=== PATIENT | male | born 1935 | race African-American/Black ===

== ENCOUNTER 2017-04-26 08:50 | Emergency (ER) | payer MEDICARE | END 2017-04-26 08:52 | disposition left against medical advice (07) | LOC: ERS 08:50 | DX: Z53.21 Procedure and treatment not carried out due to patient leaving prior to being seen by health care provider (principal) ==

== ENCOUNTER 2017-04-26 09:13 | Observation (INO) | payer MEDICARE ==
[2017-04-26 09:59] LABS: Anisocytosis SLIGHT = 6-15 cells (100X) (0-5/hpf); Band 2 % (5-11); Hematocrit 44.3 % (42.0-52.0); Mean Platelet Volume 8.2 fL (7.4-10.4); Neutrophil 80 % (42-75); Red Blood Cell (RBC) Count 5.17 mill/uL (4.70-6.10); Toxic Granulation SLIGHT; White Blood Cell (WBC) Count 6.3 thou/uL (4.8-10.8)
[2017-04-26 10:00] LABS: Lactic Acid - Sepsis 3.4 mmol/L (0.5-2.2)
[2017-04-26 10:03] LABS: ALT (SGPT) 40 U/L (8-55); Alkaline Phosphatase 94 U/L (40-150); Anion Gap 22 mmol/L (10-20); BUN (Urea Nitrogen) 23 mg/dL (8.4-25.7); Bilirubin, Total 0.5 mg/dL (0.2-1.2); Calc. Creatinine Clearance 0 mL/min (70-130); Calcium 10.8 mg/dL (7.8-10.44); Carbon Dioxide 23 mmol/L (23-31); Chloride 101 mmol/L (98-107); Estimated GFR-MDRD Greater than 90; Globulin 3.6 g/dL (2.4-3.5); Lipase 43 U/L (8-78); Protein, Total 7.9 g/dL (5.8-8.1)
[2017-04-26] MEDS ORDERED: Ondansetron HCl/PF 4 MG/2 ML Vial ONE (10:04)
[2017-04-26 10:30] LABS: AST (SGOT) 35 U/L (5-34)
[2017-04-26 10:46] LABS: Bilirubin Negative (Negative); Blood, Urine Large (Negative); Glucose, Urine (Dipstick) 100 mg/dL (Negative); Ketone, Urine Negative (Negative); Nitrite Negative (Negative)
[2017-04-26 10:47] LABS: Protein, Urine (Dipstick) 100 mg/dL (Neg-Trace)
[2017-04-26 10:50] LABS: Bacteria/HPF None Seen HPF (None Seen); RBC/HPF GREATER THAN 50-TNTC HPF (0-3); Squamous Epithelial None Seen HPF (0-3); WBC/HPF 0-3 HPF (0-3)
[2017-04-26] MEDS ORDERED: Sodium Chloride 0.9% 100 ML ONE (12:49)
[2017-04-26] MEDS ORDERED: cefTRIAXone\\ROCEPHIN 1 GM VIAL ONE (12:50)
--- NOTE | 2017-04-26 13:09 | CT ---
CT ABDOMEN WITH CONTRAST CT PELVIS WITH CONTRAST: DATE: 04/26/17. HISTORY: An 81-year-old male with diffuse abdominal pain, especially on the left side, constipation, and decre ased urination. COMPARISON: None. TECHNIQUE: IV injection of iodinated contrast media: administered. Oral contrast media: not administered. FINDINGS: There is a Pinon catheter within the collapsed urinary bladder. The urinary bladder almonte are diffus chaitanya abnormally thickened to 9 or 10 mm, and has diffusely mildly increased enhancement. The prostate gland is enlarged, and has diffusely mildly heterogeneous enhancement, with an edematous appearance. There is a large volume of stool expanding the rectum. There is a moderate to large volume of stoo l throughout the rest of the colon. No signs of acute colonic diverticulitis. There is a small amou nt of free fluid adjacent to the junction between the descending colon and sigmoid colon (axial image 68 of 103, series 4; coronal image 49 of 123, series 602). There is a large number of bilateral fatou al cysts, varying in size from a few millimeters for the smallest ones, up to 3 cm for the larger one s. Some of the lesions have higher density than serous fluid. For example, a right renal posteromed ial interpolar lesion that measures approximately 3 cm in size has a density of 50 HU. These are pre sumed to represent hemorrhagic renal cysts. With so many renal cysts, the sensitivity for the detect ion of a small renal cell carcinoma is decreased. There is no hydronephrosis. No abdominal aortic a neurysm. No focal hepatic solid or cystic mass lesion. No splenomegaly. No signs of acute pancreat itis or pancreatic mass. No adrenal mass. No small bowel dilation. No pneumoperitoneum. No pleura l effusion. There is edema in the subcutaneous fat around the gluteus musculature and in the buttock s bilaterally. IMPRESSION: 1. Mural thickening and enhancement of the urinary bladder consistent with cystitis. 2. Edematous appearance of the prostate gland, raising the possibility of prostatitis, in addition t o diffuse prostate enlargement. 3. A large number of bilateral renal cysts. 4. Small amount of free fluid adjacent to the junction between the descending colon and sigmoid colo n. Etiology is uncertain. 5. Findings questionable for fecal impaction at the rectum. CHANDLER Arteaga POS: [facility]
[2017-04-26] MEDS ORDERED: Iopamidol 370 76% 100 ML VIAL ONE (13:43)
[2017-04-26] MEDS ORDERED: Sodium Chloride 0.9% 1,000 ML IV SCH (15:20)
[2017-04-26 16:07] VITALS: BMI 21.0
[2017-04-26] MEDS ORDERED: Dextrose 5% in Water 1,000 ML IV PRN (17:41)
[2017-04-26] MEDS ORDERED: HumaLOG 300 UNITS/3 ML VIAL SC PRN (17:41)
[2017-04-26] MEDS ORDERED: Dextrose 50% Abboject 50 ML SYRINGE SLOW IVP PRN (17:41)
[2017-04-26] MEDS: Heparin 5,000 UNITS/ML VIAL SC SCH (20:29)
--- NOTE | 2017-04-27 00:11 | HP ---
DATE OF ADMISSION: 04/26/2017 CHIEF COMPLAINT: Abdominal pain and inability to urinate. HISTORY OF PRESENT ILLNESS: The patient is an 81-year-old -[place]ian male, who is admitted to the hospital with a 1-day history of urinary retention and abdominal pain. He had some abdominal amaya n and discomfort a couple of days ago, but it got better, but today especially last night he was not able to urinate and he was brought to the emergency room for further evaluation. He is constipated. He denies any fever or chills, no nausea, no vomiting. He has a history of benign prostatic hypertr ophy and no history of abdominal surgeries. PAST MEDICAL HISTORY: 1. Diabetes mellitus type 2. 2. History of prostatitis. 3. Hypertension. 4. Dementia. PAST SURGICAL HISTORY: None. SURROGATE DECISION MAKER: Celia Rodrigues, his both sons. PRIMARY CARE PHYSICIAN: Dr. Walden. FAMILY HISTORY: Father at the age of 94 of old age. Mother was in her 60s of unknown cause of . SOCIAL HISTORY: He denies any alcohol intake. He used to smoke a very long time ago. He denies any illicit drug use. Family members, his sister and his in the room and they answered all questio ns about him and his history since the patient seems to be somewhat demented. MEDICATIONS: Flomax 0.4 mg once a day, nifedipine-ER 60 mg once a day, chlorthalidone 25 mg once a d ay, donepezil 5 mg once a day and simvastatin 40 mg at bedtime. ALLERGIES: None. REVIEW OF SYSTEMS: All 14 systems were reviewed and positive symptoms were mentioned in the HPI, oth erwise negative plus some dementia and mental dysfunction. PHYSICAL EXAMINATION: VITAL SIGNS: His blood pressure is 158/73, pulse is 53, temperature is 98.1 and pulse oximetry is 96 % on room air. GENERAL: He is not in any distress during my visit. He has a Pinon catheter placed in his bladder, which was done in the emergency room in [place] where he presented. HEENT: Head is atraumatic, normocephalic. Eyes are PERRLA. Conjunctivae pinkish. Oral mucosa is moist. NECK: Supple, no lymphadenopathy. Thyroid is not palpable. LUNGS: Clear. HEART: S1, S2 normal. No S3, no S4, no murmur. ABDOMEN: Soft, nontender, bowel sounds are present, no organomegaly. EXTREMITIES: No clubbing, cyanosis or edema. NEUROLOGIC: He is alert and oriented x2. There is no any sensory or motor deficits present. Crani al nerves are intact. LABORATORY AND X-RAY FINDINGS: Showed a white count of 6.3, hemoglobin 13.9, hematocrit 44.3, platel et count is 223,000, neutrophils 80%. Chemistries showed sodium of 142, potassium 4.0, chloride 101, CO2 of 23, BUN 23, creatinine 0.84, glucose 267. Lactic acid is 3.4, first testing at 3.1, seconds testing 3 hours later, calcium 10.8, AST 35, globulin 3.6 and the rest of chemistry within normal chavez its. Urine showed 100 of protein, glucose 100, large amount of blood and rbc's are greater than 50 t o too numerous to count. CT of the abdomen and pelvis showed: 1. Mural thickening and enhancement of the urinary bladder consistent with cystitis. 2. Edematous appearance of the prostate gland facing the possibility of prostatitis in addition to d iffuse prostate enlargement. 3. A large number of bilateral renal cysts. 4. Small amount of free fluid adjacent to the junction between the descending colon and sigmoid colo n of uncertain etiology. 5. Findings questionable for fecal impaction at the rectum. IMPRESSION: 1. Urinary outlet obstruction caused by enlarged prostate. Most likely, the patient has benign pros tatic hyperplasia with prostatitis, which caused this acute closure of urethra and difficulty to urin ate. 2. Hypercalcemia, which is mild. We will give IV fluids and would see whether this is enough to imp rove calcium level and normal range. 3. Elevated lactic acid. It is mild elevation at 3.4 and down to 3.1 with IV fluids. 4. Diabetes mellitus type 2. 5. Hypertension per history. 6. History of prostatitis. 7. Dementia. PLAN: Admission to observation. Condition is fair. Activity: Bed rest and bathroom privileges. I V: Normal saline at 75 mL per hour. Patient received 500 mL bolus of IV fluids. In the emergency r oom, he received ceftriaxone injection 1 gram and morphine 2 mg IV push along with Zofran and additi onal 500 mL of normal saline, so in total he received 1000 mL of IV fluids. We will start him on lev ofloxacin and fluoroquinolones would be a better option than Rocephin to cover a wider spectrum. Uri ne culture to be done and blood cultures and Urology consultation with Dr. Aguilar tomorrow. Since t his is not in the emergency and patient should be going home in the next may be 24 hours and on oral antibiotic and with Pinon catheter to follow up with urologist in the next early 2-3 weeks and the [facility] medications will be continued.
[2017-04-27 05:34] LABS: #Eosinphils 0.3 thou/uL (0.0-0.7); #Lymphocytes 1.2 thou/uL (1.20-3.40); #Monocytes 0.5 thou/uL (0.11-0.59); #Neutrophils 2.6 thou/uL (1.40-6.50); %Basophils 0.8 % (0.0-1.0); %Eosinophils 6.6 % (0.0-10.0); %Lymphocytes 25.6 % (21.0-51.0); %Monocytes 10.2 % (0.0-10.0); Hematocrit 36.1 % (42.0-52.0); Mean Platelet Volume 8.6 fL (7.4-10.4); Red Blood Cell (RBC) Count 4.05 mill/uL (4.70-6.10); White Blood Cell (WBC) Count 4.6 thou/uL (4.8-10.8)
[2017-04-27 05:50] LABS: Anion Gap 10 mmol/L (10-20); BUN (Urea Nitrogen) 14 mg/dL (8.4-25.7); Calc. Creatinine Clearance 86 mL/min (70-130); Calcium 9.1 mg/dL (7.8-10.44); Carbon Dioxide 25 mmol/L (23-31); Chloride 106 mmol/L (98-107); Estimated GFR-MDRD Greater than 90
[2017-04-27] MEDS ORDERED: Tamsulosin HCl 0.4 MG CAP PO SCH (09:00)
[2017-04-27] MEDS ORDERED: cefTRIAXone\\ROCEPHIN 1 GM in Sodium Chloride 0.9% 100 ML IVPB SCH (09:45)
[2017-04-27] MEDS: Multivitamin W/ Minerals 1 TAB PO SCH (09:54)
[2017-04-27] MEDS: Donepezil HCl 5 MG TAB PO SCH (09:54)
[2017-04-27] MEDS: Tamsulosin HCl 0.4 MG CAP PO SCH ×2 (09:55→22:32)
[2017-04-27] MEDS: Heparin 5,000 UNITS/ML VIAL SC SCH ×3 (09:57→22:33)
[2017-04-27] MEDS: Chlorthalidone 25 MG TAB PO SCH (09:57)
[2017-04-27] MEDS: NIFEdipine XL 60 MG TAB PO SCH (10:00)
[2017-04-27] MEDS: cefTRIAXone\\ROCEPHIN 1 GM, Syringe 0.4 ML in Sterile Water 9.6 ML SLOW IVP SCH (11:58)
[2017-04-27] MEDS ORDERED: Bisacodyl 10 MG SUPP PR PRN (13:17)
[2017-04-27] MEDS ORDERED: Fleet Enema 133 ML BOT PR PRN (13:17)
[2017-04-27] MEDS ORDERED: Finasteride 5 MG TAB PO SCH (13:30)
--- NOTE | 2017-04-27 15:29 | PDOC.PN ---
- Subjective Encounter Start Date: 04/27/17 Encounter Start Time: 15:10 Subjective: f/u for urinary retention, abd pain and Luke cath placement. Feels much -: better overall except no BM. No fever, N/V. - Objective Resuscitation Status: Resuscitation Status FULL:Full Resuscitation MAR Reviewed: Yes Vital Signs & Weight: Vital Signs (12 hours) Temp Pulse Resp BP BP Pulse Ox 04/27/17 10:00 71 156/73 H 04/27/17 08:00 97.8 F 71 18 04/27/17 07:49 97.8 F 49 L 18 146/80 H 94 L 04/27/17 06:00 97.7 F 50 L 16 154/71 H 94 L Result Diagrams: 04/27/17 05:01 04/27/17 05:01 Additional Labs: Accuchecks 04/27/17 04/27/17 04/26/17 11:57 05:01 19:26 POC Glucose 130 H 85 174 H Microbiology 04/26/17 12:30 Venous blood - Left Arm Blood Culture - Preliminary Specimen has been received and culture in progress. No Growth to date. 04/26/17 11:35 Venous blood - Right Arm Blood Culture - Preliminary Specimen has been received and culture in progress. No Growth to date. 04/26/17 10:20 Urine luke catheter Urine Culture - Preliminary NO GROWTH AT 24 HOURS Laboratory Tests 04/26/17 04/26/17 04/26/17 09:35 09:35 09:35 Hgb 13.9 L Potassium 4.0 Lactic Acid 3.4 H 04/26/17 12:30 Hgb Potassium Lactic Acid 3.1 H Radiology Reviewed by me: Yes (CT abd/pel - urinary wall thickening, fecal impaction?) Phys Exam - Physical Examination Constitutional: NAD HEENT: PERRLA, oral pharynx no lesions Neck: no JVD, supple Respiratory: no wheezing, clear to auscultation bilateral Cardiovascular: RRR Gastrointestinal: soft, non-tender, no distention, positive bowel sounds minimal LE edema Musculoskeletal: pulses present Neurological: moves all 4 limbs Skin: normal turgor, cap refill <2 seconds Deviation from normal: Luke cath in place with armin urine Dx/Plan (1) Urinary retention Code(s): R33.9 - RETENTION OF URINE, UNSPECIFIED Status: Acute Comment: s/p Luke catheter insertion with resolution, continue Luke catheter as outpt, Flomax, Finasteride (2) Abdominal pain Code(s): R10.9 - UNSPECIFIED ABDOMINAL PAIN Status: Acute Qualifiers: Abdominal location: left lower quadrant Qualified Code(s): R10.32 - Left lower quadrant pain Comment: Resolved, secondary to #1 (3) Fecal impaction Code(s): K56.41 - FECAL IMPACTION Status: Acute Comment: Magnesium Citrate (4) DM II (diabetes mellitus, type II), controlled Code(s): E11.9 - TYPE 2 DIABETES MELLITUS WITHOUT COMPLICATIONS Status: Chronic Comment: Resume Lantus 30u sc HS (5) Benign prostatic hyperplasia Code(s): N40.0 - BENIGN PROSTATIC HYPERPLASIA WITHOUT LOWER URINRY TRACT SYMP Status: Chronic Qualifiers: Lower urinary tract symptom detail: urinary obstruction Comment: Continue Flomax and Finasteride - Plan plan discussed w/ family, continue antibiotics, PT/OT, DVT proph w/SCDs Stable overall -: Magnesium Citrate 300ml today -: Continue Luke catheter -: Continue Rocephin another 24h -: Appreciate Urology assistance * Likely home in am
[2017-04-27] MEDS ORDERED: Magnesium Citrate 300 ML BOT PO SCH (15:30)
--- NOTE | 2017-04-27 17:05 | CON ---
DATE OF CONSULTATION: 04/27/2017 REASON FOR CONSULTATION: A consultation was requested for urinary retention. HISTORY OF PRESENT ILLNESS: The patient is an 81-year-old male, who has had 3 prior episodes of retention requiring a catheter and is already on tamsulosin as an outpatient. He was admitted the day prior for retention, abdominal pain, and distention, and a catheter was placed for what I can best tell was about a liter. Normally, he has frequency q.34 hours, nocturia x3 to 4. He has occasional leakage, for which he wears a Depends just in case when he is at [facility] or other out ends, but normally does not have significant leakage of either the bladder or the bowels. He had fullness for a few days prior with some loose movements from a bowel standpoint, but he has not had a bowel movement since this hospital stay. PAST MEDICAL HISTORY: Significant for diabetes he has for 20 years, but it is diet controlled at this time; hypertension; dementia; and hypercholesterolemia. PAST SURGICAL HISTORY: Includes an inguinal hernia. MEDICATIONS: Include Flomax, nifedipine, chlorthalidone, donepezil, simvastatin , and MiraLax. ALLERGIES: None. REVIEW OF SYSTEMS: He really has never had a colonoscopy, but not sure about prostate cancer screening and I reviewed how he has never had any screening. It would be worth getting a PSA to ensure it is not significantly elevated; however, I suspect based on his retention and CT findings it will be significantly elevated, but I would like to rule out that it is not over 50 or 100 at this time. Decreased hearing trouble, but no chest pain, shortness of breath, or cough. SOCIAL HISTORY: He used a half-pack a day or less for the last 7 or 8 years, but quit more than 30 years ago. He does not drink or use drugs. FAMILY HISTORY: Father at 94 of some cancer that he is not sure. Mother at 75 of a heart attack. She did not have cancer. Son of colon cancer in his 50s, and again, the patient has never had a colonoscopy. PHYSICAL EXAMINATION: GENERAL: He appears comfortable in bed, most of the questions are answered by his and another family member. He has been afebrile with T-max 98.3, blood pressure 146/80, heart rate 49, respiratory rate 18, satting 94% on room air. NECK: He has no obvious JVD nor diaphoresis. HEART: Regular rhythm with borderline bradycardia noted. No murmurs, gallops, or rubs. LUNGS: Clear to auscultation bilaterally. ABDOMEN: Softly distended with normoactive bowel sounds. Nontender. GENITOURINARY: Testes were descended bilaterally without masses and atrophic. Phallus was circumcised without lesions and a 14-Portuguese Pinon was in place and secured too low, so I re-secured this to its proper position and discussed this with the nurse. Digital rectal exam reveals significant firm stool noted as well as an enlarged and firm prostate, but no obvious nodules or sidewall fixation. After manipulating the catheter to ensure that it was not stuck in the prostate, there was some hematuria noted at the meatus around the catheter, likely from the prostatic manipulation of the catheter. EXTREMITIES: Lower extremities without swelling. LABORATORY AND X-RAY FINDINGS: CBC revealed mild anemia at 11.7 and 36.1 and platelets of 141. BUN and creatinine were 14 and 0.57. Urinalysis revealed 0- 3 wbcs, too numerous to count rbcs, no bacteria, no skin cells, but glucose and protein present. He also had a CT scan from 04/26/2017, which reviewed personally, with contrast revealing multiple bilateral symphysis as well as prostatic inflammation with a decompressed bladder with a Pinon in it; it was difficult to evaluate the bladder itself. There were no obvious masses. There was no hydronephrosis, stones, or renal concerns and the rectum was huge and full of stool. ASSESSMENT AND PLAN: We have an 81-year-old male with benign prostatic hyperplasia and retention, likely exacerbated by constipation, already on Flomax with microscopic hematuria that is likely related to the catheter manipulation and his enlarged prostate, but does need followup. He likely has prostatitis based on imaging as well. I will increase his Flomax to twice a day , add finasteride, and ensure that he has significant bowel movements prior to discharge, and I would see him in followup for a voiding trial and recheck his urine to determine whether cystoscopy is necessary in the future. I'd add doxycycline BID x4 weeks for prostatitis. I would also order a PSA at this time expecting that it will be elevated, but wanting to ensure that it is not extremely elevated, making metastatic prostate cancer a concern. [facility]
[2017-04-27] MEDS ORDERED: Insulin Detemir 100 UNITS/ML 30 UNITS in Pre-Filled Syringe SC SCH (21:00)
[2017-04-27] MEDS ORDERED: Non-Formulary Item 1 EACH (Insulin Glargine,Hum.Rec.Anlog 30 UNITS) SC SCH (21:00)
[2017-04-27] MEDS: Docusate 100 MG CAP PO SCH (22:33)
[2017-04-28] MEDS ORDERED: Finasteride 5 MG TAB PO SCH (09:00)
[2017-04-28] MEDS: Docusate 100 MG CAP PO SCH (09:17)
[2017-04-28] MEDS: Multivitamin W/ Minerals 1 TAB PO SCH (09:17)
[2017-04-28] MEDS: Heparin 5,000 UNITS/ML VIAL SC SCH (09:22)
[2017-04-28] MEDS: Chlorthalidone 25 MG TAB PO SCH (09:23)
[2017-04-28] MEDS: NIFEdipine XL 60 MG TAB PO SCH (09:24)
[2017-04-28] MEDS: Donepezil HCl 5 MG TAB PO SCH (09:24)
[2017-04-28] MEDS: cefTRIAXone\\ROCEPHIN 1 GM, Syringe 0.4 ML in Sterile Water 9.6 ML SLOW IVP SCH (10:19)
--- NOTE | 2017-04-28 10:25 | PRG ---
DATE OF SERVICE: 04/28/2017 The patient has done well overnight. It does appear he has had a significant bowel movement and a co uple of smears that he does not remember, but has been recorded and confirmed by the nurse. PHYSICAL EXAMINATION: VITAL SIGNS: His vitals have been stable and he has been afebrile. His blood pressures actually imp roved from being hypertensive. Pinon catheter put 1700 out overnight. Again, it was not secured so I had to get a cath secure and resecure this appropriately and discussed this with the nurse. LABORATORY: Laboratory values also reveal he has a PSA of 9.32. ASSESSMENT AND PLAN: We have an 81-year-old male with urinary retention from BPH and probable prosta titis with elevated PSA, but not concerning at this time based on his physical exam and the current G U issues. I would continue his IV antibiotics while he is in house and discharge him on doxycycline which has already been called in for a total of 4 weeks for presumed prostatitis. Keep the catheter in and taking tamsulosin twice a day and finasteride as an outpatient as well. He can follow up in t he office for a voiding trial.
[2017-04-28 11:22] VITALS: TEMP 98.5
[2017-04-28 15:37] VITALS: BP 119/80
--- NOTE | 2017-04-28 20:15 | DIS ---
DATE OF ADMISSION: 04/26/2017 DATE OF DISCHARGE: 04/28/2017 DISCHARGE DIAGNOSES: 1. Acute urinary retention secondarily to prostate hyperplasia. 2. Prostatitis in the context of benign prostatic hyperplasia. 3. Constipation, resolved. 4. Abdominal pain secondary to acute urinary retention, resolved. 5. Diabetes mellitus type 2, insulin-requiring, stable. 6. Dementia, likely Alzheimer's type. CONSULTATIONS: Dr. Sprague with Urology service. PERTINENT LAB AND X-RAY FINDINGS: Creatinine ranged between 0.57-0.84. Lactic acid level ranged bet ween 3.1-3.4. PSA 9.32. CBC showed a white blood cell count ranging between 4.6-6.3, hemoglobin ran ged between 11.7-13.9. Urine culture dated 04/26/2017 showed no growth at 24 hours. Blood cultures x2 on 04/26/[address] of the abdomen and pelvis dated 04/26/2017 showed mural thickening and enhancement of the urinary bladder consistent with cystitis. Edematous appearance of the prostate g land, likely prostatitis. Bilateral renal cysts. Fecal impaction in the rectum. HOSPITAL COURSE: Patient was admitted to the medical floor after initially presenting with abdominal pain and inability to urinate. The patient underwent general evaluation with evidence of acute urin vinay retention with placement of Pinon catheter. The patient had immediate return of urine after plac ement of Pinon catheter with stabilization and resolution of the retention. The patient was evaluate d by the Urology service with recommendations to continue Pinon catheter placement and monitor on an ongoing basis as an outpatient. The patient received IV antibiotics after concern for possible urina ry tract infection; however, urine culture showed no growth to date. The patient also was initiated on finasteride in addition to Flomax 0.4 mg b.i.d. Overall, patient did remain clinically stable, vo iding appropriately, tolerating regular oral intake, and ready for discharge on 04/28/2017. DISCHARGE MEDICATIONS: 1. Doxycycline 100 mg p.o. b.i.d. x4 weeks. 2. Flomax 0.4 mg p.o. b.i.d. 3. Finasteride 5 mg p.o. daily. 4. Aricept 5 mg 1 tablet p.o. daily. 5. Chlorthalidone 25 mg p.o. daily. 6. Lantus Solostar 30 units subcutaneously at bedtime. 7. Multivitamin 1 tablet p.o. daily. 8. Nifedipine ER 60 mg 1 tablet p.o. daily. 9. Crestor 40 mg p.o. at bedtime. FOLLOWUP: Patient will follow up with his primary care provider Dr. Fifi Walden within 7 days of discharge. Patient will follow up with Dr. Carole Sprague with Urology service on 05/04/2017. CONDITION ON DISCHARGE: Stable. ACTIVITY: Ad alix. DIET: ADA. SPECIAL INSTRUCTIONS: Continue Pinon catheter until 05/04/2017. CODE STATUS: FULL. DISPOSITION: Home 05/04/2017.
== END 2017-04-28 14:36 | disposition home or self-care (01) ==
LOC: SCSER 09:13 → T4-B 15:16 → INTOOBSV 15:16
PROVIDERS: ADMIT Internal Medicine; ATTEND Internal Medicine
DX: N40.1 Benign prostatic hyperplasia with lower urinary tract symptoms (principal); R33.8 Other retention of urine; K59.00 Constipation, unspecified; E11.9 Type 2 diabetes mellitus without complications; F03.90 Unspecified dementia, unspecified severity, without behavioral disturbance, psychotic disturbance, mood disturbance, and anxiety; I10 Essential (primary) hypertension; Z79.899 Other long term (current) drug therapy; Z87.891 Personal history of nicotine dependence
CPT/HCPCS: 51702; 74177; 80048; 80053; 82962 ×3; 83605; 83690; 85025 ×2; 87040; 87086; 96361 ×3; 96365; 96375 ×2; 96376; 99285; G0103; G0378; 36415; 36416; 81003; 81015; A4216; J0696; J1644; J1815; J1956; J2270; J2405; J7050

== ENCOUNTER 2017-05-05 03:48 | Emergency (ER) | payer MEDICARE ==
[2017-05-05 04:33] LABS: #Eosinphils 0.4 thou/uL (0.0-0.7); #Lymphocytes 1.1 thou/uL (1.20-3.40); #Monocytes 0.7 thou/uL (0.11-0.59); #Neutrophils 3.1 thou/uL (1.40-6.50); %Basophils 0.9 % (0.0-1.0); %Eosinophils 6.6 % (0.0-10.0); %Lymphocytes 20.9 % (21.0-51.0); %Monocytes 13.6 % (0.0-10.0); Hematocrit 39.7 % (42.0-52.0); Mean Platelet Volume 7.4 fL (7.4-10.4); Red Blood Cell (RBC) Count 4.44 mill/uL (4.70-6.10); White Blood Cell (WBC) Count 5.4 thou/uL (4.8-10.8)
[2017-05-05 04:46] LABS: ALT (SGPT) 30 U/L (8-55); AST (SGOT) 42 U/L (5-34); Alkaline Phosphatase 78 U/L (40-150); Anion Gap 12 mmol/L (10-20); BUN (Urea Nitrogen) 27 mg/dL (8.4-25.7); Bilirubin, Total 0.4 mg/dL (0.2-1.2); Calc. Creatinine Clearance 0 mL/min (70-130); Calcium 10.4 mg/dL (7.8-10.44); Carbon Dioxide 30 mmol/L (23-31); Chloride 102 mmol/L (98-107); Estimated GFR-MDRD Greater than 90; Globulin 3.1 g/dL (2.4-3.5); Protein, Total 6.9 g/dL (5.8-8.1)
[2017-05-05 04:55] LABS: Bilirubin Negative (Negative); Blood, Urine Negative (Negative); Glucose, Urine (Dipstick) Negative (Negative); Ketone, Urine Negative (Negative); Nitrite Negative (Negative); Protein, Urine (Dipstick) Trace mg/dL (Neg-Trace)
== END 2017-05-05 05:50 | disposition home or self-care (01) ==
LOC: ERS 03:48
DX: N39.490 Overflow incontinence (principal); I10 Essential (primary) hypertension
CPT/HCPCS: 36415; 80053; 81003; 85025; 99283

== ENCOUNTER 2017-10-25 11:21 | Emergency (ER) | payer MEDICARE ==
[2017-10-25 12:16] LABS: ALT (SGPT) 31 U/L (8-55); AST (SGOT) 40 U/L (5-34); Albumin 3.8 g/dL (3.4-4.8); Alkaline Phosphatase 89 U/L (40-150); Anion Gap 15 mmol/L (10-20); BUN (Urea Nitrogen) 17 mg/dL (8.4-25.7); Bilirubin, Total 0.5 mg/dL (0.2-1.2); Calc. Creatinine Clearance 0 mL/min (70-130); Calcium 10.1 mg/dL (7.8-10.44); Carbon Dioxide 29 mmol/L (23-31); Chloride 100 mmol/L (98-107); Estimated GFR-MDRD 85; Globulin 3.1 g/dL (2.4-3.5); Glucose 198 mg/dL (83-110); Protein, Total 6.9 g/dL (5.8-8.1); Sodium 141 mmol/L (136-145)
[2017-10-25 12:21] LABS: Potassium 2.8 mmol/L (3.5-5.1)
[2017-10-25 12:21] LABS: #Eosinphils 0.2 thou/uL (0.0-0.7); #Lymphocytes 1.2 thou/uL (1.20-3.40); #Monocytes 0.7 thou/uL (0.11-0.59); %Basophils 0.1 % (0.0-1.0); %Eosinophils 2.6 % (0.0-10.0); %Monocytes 9.4 % (0.0-10.0); %Neutrophils 70.9 % (42.0-75.0); CKMB 6.6 ng/mL (0-6.6); Hemoglobin 12.4 g/dL (14.0-18.0); Mean Corpuscular HGB CONC 32.2 g/dL (32.0-36.0); Mean Corpuscular Hemoglobin 27.1 pg (27.0-31.0); Mean Corpuscular Volume 84.3 fl (80.0-94.0); Mean Platelet Volume 7.5 fL (7.4-10.4); Platelet Count 212 thou/uL (130-400); RBC Distribution Width 12.4 % (11.5-14.5); Red Blood Cell (RBC) Count 4.56 mill/uL (4.70-6.10); Troponin I 0.026 ng/mL (< 0.028)
--- NOTE | 2017-10-25 13:18 | CT ---
CT BRAIN WITHOUT CONTRAST: Date: 10/25/17 HISTORY: Fall, weakness, left facial bruising. FINDINGS: There are changes of cortical atrophy and chronic small vessel ischemic disease. The ventricular size is appropriate and the basilar cisterns are patent. No evidence of acute infarct, hemorrhage, midlin e shift, or abnormal extra-axial fluid collections are seen. The bony calvarium is intact. The visual ized paranasal sinuses and mastoid air cells are well aerated. IMPRESSION: No CT evidence of acute intracranial process. POS: [facility]
--- NOTE | 2017-10-25 13:23 | CT ---
CT CERVICAL SPINE WITH CORONAL AND SAGITTAL REFORMATIONS: Date: 10/25/17 HISTORY: Fall, neck pain. FINDINGS/IMPRESSION: There are degenerative changes in the cervical spine with multilevel neural foraminal stenosis. No ac lower [place] fracture or subluxation is seen. POS: [facility]
[2017-10-25] MEDS ORDERED: Potassium Chloride 20 MEQ TAB ONE (13:27)
== END 2017-10-25 14:30 | disposition home or self-care (01) ==
LOC: ERS 11:21
DX: E87.6 Hypokalemia (principal); E78.5 Hyperlipidemia, unspecified; E10.9 Type 1 diabetes mellitus without complications; I10 Essential (primary) hypertension; F03.90 Unspecified dementia, unspecified severity, without behavioral disturbance, psychotic disturbance, mood disturbance, and anxiety
CPT/HCPCS: 70450; 72125; 80053; 82553; 84484; 85025; 93005; 96360

== ENCOUNTER 2018-07-18 19:16 | Emergency (ER) | payer MEDICARE ==
[2018-07-18 20:03] LABS: #Basophils 0.2 thou/uL (0.0-0.2); #Eosinphils 0.2 thou/uL (0.0-0.7); #Lymphocytes 1.1 thou/uL (1.20-3.40); #Monocytes 0.7 thou/uL (0.11-0.59); #Neutrophils 4.5 thou/uL (1.40-6.50); %Basophils 2.4 % (0.0-1.0); %Eosinophils 2.9 % (0.0-10.0); %Lymphocytes 16.1 % (21.0-51.0); %Monocytes 10.1 % (0.0-10.0); %Neutrophils 68.5 % (42.0-75.0); Mean Corpuscular HGB CONC 32.2 g/dL (32.0-36.0); Mean Corpuscular Hemoglobin 27.5 pg (27.0-31.0); Mean Corpuscular Volume 85.5 fL (78.0-98.0); Mean Platelet Volume 7.8 fL (7.4-10.4); Platelet Count 165 thou/uL (130-400); RBC Distribution Width 13.4 % (11.5-14.5); Red Blood Cell (RBC) Count 4.72 mill/uL (4.70-6.10); White Blood Cell (WBC) Count 6.6 thou/uL (4.8-10.8)
[2018-07-18 20:04] LABS: ALT (SGPT) 19 U/L (8-55); AST (SGOT) 21 U/L (5-34); Albumin 4.1 g/dL (3.4-4.8); Alkaline Phosphatase 90 U/L (40-150); Anion Gap 19 mmol/L (10-20); BUN (Urea Nitrogen) 26 mg/dL (8.4-25.7); Bilirubin, Total 0.4 mg/dL (0.2-1.2); Calc. Creatinine Clearance 0 mL/min (70-130); Calcium 10.1 mg/dL (7.8-10.44); Carbon Dioxide 23 mmol/L (23-31); Chloride 101 mmol/L (98-107); Estimated GFR-MDRD 47; Glucose 267 mg/dL (83-110); Potassium 3.7 mmol/L (3.5-5.1); Protein, Total 7.1 g/dL (5.8-8.1); Sodium 139 mmol/L (136-145)
--- NOTE | 2018-07-18 20:39 | RAD ---
RIGHT HIP TWO VIEWS: History: Fall. Comparison: None. FINDINGS: Right femur is intact. No fracture or malalignment. Mild enthesopathic changes of the hamstring tendo n. IMPRESSION: No acute displaced fracture or malalignment. POS: [facility]
[2018-07-18] MEDS ORDERED: Acetaminophen 325 MG TAB ONE (21:12)
--- NOTE | 2018-07-18 21:35 | CT ---
CT ABDOMEN WITH CONTRAST CT PELVIS WITH CONTRAST LIMITED CT OF THE LUMBOSACRAL SPINE WITH CONTRAST: History: Fall. Pain. Comparison: None. FINDINGS: Mild atelectasis in the lung bases. There is a moderate stool burden throughout the colon. Prostate i s markedly enlarged. There is marked dilatation of the rectum with stool with the rectum measuring ap proximately 8.5 cm. Appendix is visualized and is normal. There is bilateral paraspinal muscle atrophy anterior and poste rior. There is also gluteus muscle atrophy. The femoral heads and femoral necks are intact. The obturator rings are intact. Moderate bilateral hi p joint effusions. Sacrum is intact. No fracture. Lumbar spine is without acute fracture or malalignment. There are bilateral renal hypodensities, some of which measure greater than fluid attenuation, not definitely cysts. No evidence for acute hepatic , splenic, or pancreatic injury. No mesenteric hematoma. IMPRESSION: 1. No acute post-traumatic sequellae within the abdomen or pelvis. No pelvic fracture. 2. Bilateral renal hypodensities, numerous, some of which measure greater than fluid attenuation and are not simple cysts. If clinically warranted, a follow up CT or MRI renal protocol in 2-3 months is recommended. 3. Large volume of stool throughout the colon. 4. Marked prostatomegaly. POS: [facility]
== END 2018-07-18 21:33 | disposition home or self-care (01) ==
LOC: SCSER 19:16
DX: M25.551 Pain in right hip (principal); N17.9 Acute kidney failure, unspecified; E11.9 Type 2 diabetes mellitus without complications; E78.5 Hyperlipidemia, unspecified; I10 Essential (primary) hypertension; W01.0XXA Fall on same level from slipping, tripping and stumbling without subsequent striking against object, initial encounter; Y93.01 Activity, walking, marching and hiking
CPT/HCPCS: 74177; 80053; 85025; 94760

== ENCOUNTER 2018-11-03 10:29 | Emergency (ER) | payer MEDICARE ==
--- NOTE | 2018-11-03 11:19 | CT ---
CT brain. HISTORY: Fall, altered mental status. Noncontrast enhanced CT images of the brain obtained. There is diffuse cortical atrophy. Deep white matter ischemic changes seen. No evidence of acute intracranial masses, hemorrhages, strokes or contusion seen. IMPRESSION: no evidence of acute intracranial disease seen.
== END 2018-11-03 12:02 | disposition home or self-care (01) ==
LOC: ERS 10:29
DX: Z04.3 Encounter for examination and observation following other accident (principal); E78.5 Hyperlipidemia, unspecified; E10.9 Type 1 diabetes mellitus without complications; I10 Essential (primary) hypertension; F03.90 Unspecified dementia, unspecified severity, without behavioral disturbance, psychotic disturbance, mood disturbance, and anxiety; Z79.899 Other long term (current) drug therapy; W19.XXXA Unspecified fall, initial encounter
CPT/HCPCS: 70450